=== PATIENT | male | born 1950 | race African-American/Black ===

== ENCOUNTER 2022-11-10 12:25 | Emergency (ER) | payer MEDICARE ==
[~2022-11-10] VITALS: Ht 185.4 cm; Wt 81.6 kg
[2022-11-10 12:58] VITALS: TEMP 98.5; O2SAT 98
[2022-11-10] MEDS ORDERED: OXYCODONE HCL/ACETAMINOPHEN 5/325MG TABLET PO ONE (14:00)
[2022-11-10 14:18] VITALS: BP 117/73; PULSE 16; RESP 16
== END 2022-11-10 16:19 | disposition home or self-care (01) ==
LOC: ER 13:27
DX: S49.92XA Unspecified injury of left shoulder and upper arm, initial encounter (principal); Z90.49 Acquired absence of other specified parts of digestive tract; V43.02XA Car driver injured in collision with other type car in nontraffic accident, initial encounter; Y93.89 Activity, other specified; Y92.89 Other specified places as the place of occurrence of the external cause; Y99.8 Other external cause status
CPT/HCPCS: 71045; 73030; 73060; 99283